=== PATIENT | male | born 1950 | race Caucasian/White ===

== ENCOUNTER → 2025-06-07 | Outpatient (CLI) | payer MEDICARE, BC ==
[~2025-06-07] MED LIST: ISOVUE-370 76% 100 ML VIAL As Ordered ONE
== END ==
LOC: M RAD 12:52
PROVIDERS: ATTEND Nurse Practitioner Family
DX: D3A.8 Other benign neuroendocrine tumors (principal); C7A.00 Malignant carcinoid tumor of unspecified site; R93.3 Abnormal findings on diagnostic imaging of other parts of digestive tract
CPT/HCPCS: 71260; Q9967